=== PATIENT | male | born 1950 | race Caucasian/White ===

== ENCOUNTER 2016-12-31 07:15 | Day surgery (SDC) | payer MEDICARE, OTHER ==
[2016-12-29 11:43] LABS: BASOPHILS 0.4 %; BASOPHILS ABSOLUTE 0.02 10/3/uL (0.0-0.16); EOSINOPHILS 3.2 %; EOSINOPHILS ABSOLUTE 0.15 10/3/uL (0.0-0.53); HEMATOCRIT 40.8 % (40.0-51.0); HEMOGLOBIN 14.3 g/dL (13.6-17.8); LYMPHOCYTES ABSOLUTE 1.04 10/3/uL (0.67-4.30); MANUAL DIFF NO %; MEAN CORPUSCULAR HEMOGLOB 32.9 pg (26.0-34.0); MEAN PLATELET VOLUME 11.1 fL (9.2-13.0); MONOCYTES 11.4 %; MONOCYTES ABSOLUTE 0.54 10/3/uL (0.21-1.20); NEUTROPHILS ABSOLUTE 2.98 10/3/uL (2.02-8.40); PLATELET COUNT 171 10/3/uL (150-400); RBC DISTRIBUTION WIDTH 13.3 % (12.0-16.0); RED CELL COUNT 4.34 10/6/uL (4.7-6.1); WHITE BLOOD CELLS 4.7 10/3/uL (4.5-10.5)
[2016-12-29 11:55] LABS: BUN (BLOOD UREA NITROGEN) 18 MG/DL (6-23); CALCIUM, SERUM 8.8 MG/DL (8.5-10.4); CHLORIDE, SERUM 107 MMOL/L (96-112); CO2 (CARBON DIOXIDE) 29 MMOL/L (24-34); CREATININE 1.21 MG/DL (0.70-1.30); GFR AFRICAN AMERICAN 71 ML/MIN (>=60); GFR NON AFRICAN AMERICAN 61 ML/MIN (>=60); GLUCOSE, SERUM 97 MG/DL (60-99); POTASSIUM, SERUM 3.9 MMOL/L (3.5-5.3); SODIUM, SERUM 144 MMOL/L (135-148)
--- NOTE | ~2016-12-31 | OP ---
Record Of Operation [address] [place]. [address] NAME: ANTONIO BECKHAM : 46 STATUS : [facility]#: [id number] AGE: 66 ADM/REG DATE : 12/31/16 MR#: [id number] REPORT SERV DATE: 12/31/16 DICTATED BY: FACUNDO DONIS DATE: 12/31/16 REPORT STATUS : Draft TRANSCRIBED BY: MODL DATE: 12/31/16 DATE OF PROCEDURE: 12/31/2016 SERVICE: Otolaryngology. PREOPERATIVE DIAGNOSES: 1. Acquired nasal deformity. 2. Deviated nasal septum. 3. Bilateral inferior turbinate hypertrophy. POSTOPERATIVE DIAGNOSES: 1. Acquired nasal deformity. 2. Deviated nasal septum. 3. Bilateral inferior turbinate hypertrophy. PROCEDURE: 1. Repair of nasal vestibular stenosis. 2. Septoplasty. 3. Bilateral inferior turbinoplasty with outfracture. 4. [place] of septal cartilage for use as a graft in the nose. SURGEON: Facundo Donis MD ANESTHESIA: General endotracheal anesthesia. ESTIMATED BLOOD LOSS: 10 mL. COMPLICATIONS: None. SPECIMENS: Nasal bone and cartilage. FINDINGS: The patient had a posteriorly deviated nasal septum. He had bilateral internal nasal valve insufficiency and bilateral inferior turbinate hypertrophy. STATEMENT OF MEDICAL NECESSITY: This is a 66-year-old male, with a long standing history of nasal airway obstruction. He did not have allergies. He did have mechanical obstruction on exam demonstrated by nasal endoscopy, and anterior rhinoscopy, and I recommended the above procedure. STATEMENT OF OPERATION: The patient was brought to the operating room in supine position, transferred over to the operating room table. All pressure points were padded and general endotracheal anesthesia was established. The nasal hairs were trimmed with a small iris scissors. The skin and soft tissue envelope and the nasal septal flaps bilaterally were injected with 1% lidocaine with epinephrine, totaling 5 mL. Next, Afrin-soaked pledgets were applied to both sides of the nose. The patient was then prepped and draped in the usual sterile fashion. Bilateral marginal incisions were made first, followed by Record Of Operation [address] [place]. [address] NAME: ANTONIO BECKHAM : 46 STATUS : [facility]#: [id number] AGE: 66 ADM/REG DATE : 12/31/16 MR#: [id number] REPORT SERV DATE: 12/31/16 DICTATED BY: FACUNDO DONIS DATE: 12/31/16 REPORT STATUS : Draft TRANSCRIBED BY: SILVIA DATE: 12/31/16 transcolumellar incision. The transcolumellar incision was then inverted in V fashion. The soft tissue of the columella was elevated in the submuscular plane and connected with the marginal incision bilaterally. The skin and soft tissue envelope was fully elevated to fully expose the upper and lower lateral cartilages. Next, the anterior septal angle was developed with a #15 blade. Bilateral septal flaps were created in the subperichondrial and subperiosteal plane. The upper lateral cartilages were sharply with a #15 blade from the dorsal septal cartilage. Next, the bony cartilaginous junction of the septum was gently dissected apart with a Ripley elevator. The deviated portion of the bony septum was isolated with Stewart scissors, first making a superior cut, then the inferior cut, a Jin-Magic forceps was used to remove the specimen. Then a piece of quadrangular cartilage was harvested leaving 1.5 cm dorsal and caudal strut. It was taken to the back table where two talent program manager grafts and one columellar strut grafts were fashioned with a 15 blade. The talent program manager grafts were placed between the upper lateral cartilage, and the dorsal septal cartilage, and secured with two interrupted 5-0 PDS sutures. Next, a soft tissue pocket was created between the medial crura of the lower lateral cartilage. The columellar strut graft was placed in the pocket with the residential living assistant holding the nasal tips in appropriate projection and rotation. A transcolumellar suture was placed incorporating both medial crura and the columellar strut graft using PDS. The skin and soft tissue envelope was then redraped over the nose. The patient had appropriate symmetry in appearance. The both inferior turbinates were then injected with 1 mL of 1% lidocaine with epinephrine. Then using a [employer] microdebrider they were reduced intramurally and outfractured with a Boies elevator. Next, the transcolumellar incision was closed using interrupted 6-0 fast absorbing gut sutures, followed by the internal nasal sutures which were closed with 4-0 chromic gut. The skin of the face and nose were gently washed with warm saline and dried. Mastisol solution was applied to the dorsum of the nose. Desai splints coated in bacitracin were then inserted to each side of the nose and secured to the anterior septum with a 3-0 nylon suture. A modified Steri-Strips were applied to the bridge of the nose followed by an Aquaplast splint. Finally, the patient's stomach and oropharynx were suctioned clear of blood and fluid with an orogastric tube. This concluded the case. The patient awoke, was extubated, and transferred to the PACU in stable condition. PS/MODL Facundo Donis MD / [id number] CC: MD Quan Morris M.D.
[~2016-12-31 07:15] MED LIST: MONO20 PO; NORV10 PO; ZOCOR20 PO
== END 2016-12-31 15:28 | disposition home or self-care (01) ==
LOC: SDC 07:15
PROVIDERS: Otolaryngology
PROC: 09QL0ZZ Repair Nasal Turbinate, Open Approach (ICD-10-PCS; 2016-12-31)
PROC: 09QK0ZZ Repair Nasal Mucosa and Soft Tissue, Open Approach (ICD-10-PCS; principal; 2016-12-31 09:00)
DX: M95.0 Acquired deformity of nose (principal); J34.2 Deviated nasal septum; J34.3 Hypertrophy of nasal turbinates; I10 Essential (primary) hypertension; E78.00 Pure hypercholesterolemia, unspecified; J30.2 Other seasonal allergic rhinitis
CPT/HCPCS: 80048; 85025; 88300; 93005; A9270-GY; J0690; J2250; J2405; J2710; J3010